=== PATIENT | female | born 1975 | race Hispanic/Latino ===

== ENCOUNTER 2019-01-11 15:49 | Emergency (ER) | payer BC ==
--- OUTSIDE RECORDS SUMMARY | 2019-01-11 15:50 | XMS REPORT ---
:1975 Author Organization eClinicalWorks Care Team Providers Name Role Phone Bret Shafer Provider Role Unavailable Allergies No Known Allergies Problems Problem Type Condition Code Onset Dates Condition Status Problem Benign essential HTN I10 Active Problem Allergic rhinitis, seasonal J30.2 Active Problem Dizziness R42 Active Problem Obesity (BMI 30-39.9) E66.9 Active Problem Vertigo R42 Active Problem Vitamin D deficiency E55.9 Active Problem Vitamin B 12 deficiency E53.8 Active Problem Hyperlipidemia, mixed E78.2 Active Problem Malaise and fatigue R53.81 Active Problem Elevated blood pressure (not R03.0 Active hypertension) Assessment Vitamin D deficiency E55.9 Active Assessment Malaise and fatigue R53.81 Active Assessment Benign essential HTN I10 Active Assessment Type 2 diabetes mellitus without E11.9 Active complication, without long-term current use of insulin Problem Type 2 diabetes mellitus without E11.9 Active complication, without long-term current use of insulin Assessment Hyperlipidemia, mixed E78.2 Active Problem Episodic lightheadedness R42 Active Medications Medication Code Code Instructions Start End Status Dosage System Date Date Metformin HCl [facility] 81781200232 500 MG Active TAKE 1 TABLET BY MOUTH TWICE A DAY Metformin HCl ND 20129550657 500 MG Orally Active 1 tablet Twice a day with meals Claritin [facility] 52063175541 10 MG Orally Active 1 tablet Once a day Lipitor ND 78704892246 20 MG Active TAKE 1 TABLET BY MOUTH AT BEDTIME Levocetirizine ND 18492965585 5 MG Orally Active 1 tablet Dihydrochloride Once a day in the evening Lipitor ND 31950609842 20 MG Active TAKE 1 TABLET BY MOUTH AT BEDTIME Flonase ND 37765415182 50 MCG/ACT Active 1 spray Nasally Once a in each day nostril Results No Known Results Summary Purpose eClinicalWorks Submission
--- OUTSIDE RECORDS SUMMARY | 2019-01-11 15:50 | XMS REPORT ---
:1975 Author Organization e[employer]Works Care Team Providers Name Role Phone Bret Shafer Provider Role Unavailable Allergies, Adverse Reactions, Alerts Substance Reaction Event Type N.K.D.A. Info Not Available Non Drug Allergy Problems Problem Type Condition Code Onset Dates Condition Status Problem Episodic lightheadedness R42 Active Problem Hyperlipidemia, mixed E78.2 Active Problem Allergic rhinitis, seasonal J30.2 Active Problem Vitamin D deficiency E55.9 Active Problem Obesity (BMI 30-39.9) E66.9 Active Problem Adult BMI 31.0-31.9 kg/sq m Z68.31 Active Problem Elevated blood pressure (not R03.0 Active hypertension) Problem Vitamin B 12 deficiency E53.8 Active Problem Vertigo R42 Active Problem Malaise and fatigue R53.81 Active Assessment Malaise and fatigue R53.81 Active Assessment Type 2 diabetes mellitus without E11.9 Active complication, without long-term current use of insulin Assessment Adult BMI 31.0-31.9 kg/sq m Z68.31 Active Assessment Vitamin D deficiency E55.9 Active Problem Type 2 diabetes mellitus without E11.9 Active complication, without long-term current use of insulin Assessment Hyperlipidemia, mixed E78.2 Active Problem Benign essential HTN I10 Active Assessment Benign essential HTN I10 Active Problem Dizziness R42 Active Medications Medication Code Code Instructions Start End Status Dosage System Date Date Claritin [facility] 62806135191 10 MG Orally Active 1 tablet Once a day Metformin HCl [facility] 19163104854 500 MG Orally Active 1 tablet Twice a day with meals Lipitor [facility] 53319015138 20 MG Orally Active take 1 Once a day tablet by mouth at bedtime Flonase [facility] 35482108094 50 MCG/ACT Active 1 spray Nasally Once a in each day nostril Metformin HCl [facility] 86441545745 500 MG Active TAKE 1 TABLET BY MOUTH TWICE A DAY Levocetirizine [facility] 13348915492 5 MG Orally Active 1 tablet Dihydrochloride Once a day in the evening Lipitor [facility] 36070160504 20 MG Active TAKE 1 TABLET BY MOUTH AT BEDTIME Results Name Result Date Reference Range Unit Abnormality Flag HEMOGLOBIN A1C ----A1C 5.8 [id number] Summary Purpose eClinicalWorks Submission
[2019-01-11] MEDS ORDERED: DIAZEPAM 5 MG TABLET ONE (17:36)
[2019-01-11] MEDS ORDERED: KETOROLAC 30 MG/ML INJ ONE (17:36)
[2019-01-11] MEDS ORDERED: MORPHINE 4 MG/ML SYR ONE (17:36)
[2019-01-11] MEDS ORDERED: ONDANSETRON 4 MG/2 ML VIAL ONE (17:37)
[2019-01-11] MEDS ORDERED: NA CHLORIDE 0.9% 1,000 ML ONE (17:37)
[2019-01-11 17:53] LABS: Absolute Lymphocytes (CBC) 2.7 K/uL (0.7-4.9); Absolute Monocytes 0.6 K/uL (0.1-1.3); Basophils % 0.4 % (0-1.3); Eosinophils % 0.7 % (0-4.4); Hematocrit 35.9 % (36.0-45.0); Lymphocytes % 32.6 % (15.3-44.8); MPV 8.4 fL (7.6-11.3); Monocytes % 7.1 % (3.3-12.3); RBC Red Blood Cell Count 4.26 M/uL (3.86-4.86)
--- NOTE | 2019-01-11 18:01 | RAD REPORT ---
EXAM DESCRIPTION: CT - Stone Protocol - 01/11/2019 5:49 pm CLINICAL HISTORY: Flank pain. Abd pain;Flank pain COMPARISON: <Comparisons> TECHNIQUE: Axial images were obtained without oral or IV contrast. Lack of contrast limits solid org an and vascular assessment. The rxdqj-xu-tigm spans the entirety of the system partially obscuring uppermost abdomen and lung bases. Coronal reformatted images were obtained and reviewed. All CT scans are performed using dose optimization technique as appropriate and may include automated exposure control or mA/KV adjustment according to patient size. FINDINGS: The lower lung tenorio are clear. Imaged portions of the liver and spleen show no suspicious findings on non-contrast imaging. The panc reas and adrenal glands are normal. No pathologic lymphadenopathy in the abdomen or pelvis. Punctate calculus is seen the inferior calyx right kidney. No hydronephrosis of either kidney. 18 mm cyst with mild peripheral calcification seen medial left kidney. No bowel obstruction, free air, free fluid or abscess. Appendectomy. No significant bony abnormality. IMPRESSION: Punctate calculus inferior right kidney without hydronephrosis.
[2019-01-11 18:05] LABS: ALT/SGPT 29 U/L (12-78); AST/SGOT 17 U/L (15-37); Albumin 4.1 g/dL (3.4-5.0); Alkaline Phosphatase 58 U/L (45-117); BUN Blood Urea Nitrogen 21 mg/dL (7-18); Bicarbonate 29 mmol/L (21-32); Bilirubin Direct < 0.1 mg/dL (0-0.2); Bilirubin Total 0.3 mg/dL (0.2-1.0); Glucose Level 88 mg/dL (74-106); Lipase 265 U/L (73-393); Potassium 3.5 mmol/L (3.5-5.1); Protein, Total 7.4 g/dL (6.4-8.2); Sodium Level 141 mmol/L (136-145)
--- NOTE | 2019-01-11 18:14 | EDPHYS ---
Physician Documentation [facility] Name: Flaca Lopes Age: 43 yrs Sex: Female : 1975 Arrival Date: 01/11/2019 Time: 15:51 Bed 26 Private MD: ED Physician Alex Ramires HPI: 01/11 17:07 This 43 yrs old Female presents to ER via Ambulatory with complaints of Back wilder Pain. 17:07 The patient presents with pain that is acute, with no known mechanism of injury. The wilder symptoms are located in the low back. Onset: The symptoms/episode began/occurred just prior to arrival, 2 day(s) ago. The pain does not radiate. Associated signs and symptoms: The patient has no apparent associated signs or symptoms. Modifying factors: The patient symptoms are alleviated by remaining still, the patient symptoms are aggravated by any movement, nothing. Severity of symptoms: At their worst the symptoms were moderate, in the emergency department the symptoms are unchanged. The patient has not experienced similar symptoms in the past. 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 - Social history:: Smoking status: Patient/guardian denies using tobacco. - Ebola Screening: : No symptoms or risks identified at this time. - Family history:: not pertinent. ROS: 17:07 Constitutional: Negative for fever, chills, and weight loss, Eyes: Negative for injury, wilder pain, redness, and discharge, ENT: Negative for injury, pain, and discharge, Neck: Negative for injury, pain, and swelling, Cardiovascular: Negative for chest pain, palpitations, and edema, Respiratory: Negative for shortness of breath, cough, wheezing, and pleuritic chest pain, Abdomen/GI: Negative for abdominal pain, nausea, vomiting, diarrhea, and constipation, : Negative for injury, bleeding, discharge, and swelling, MS/Extremity: Negative for injury and deformity, Skin: Negative for injury, rash, and discoloration, Neuro: Negative for headache, weakness, numbness, tingling, and seizure, Psych: Negative for depression, anxiety, suicide ideation, homicidal ideation, and hallucinations, Allergy/Immunology: Negative for hives, rash, and allergies, Endocrine: Negative for neck swelling, polydipsia, polyuria, polyphagia, and marked weight changes, Hematologic/Lymphatic: Negative for swollen nodes, abnormal bleeding, and unusual bruising. 17:07 Back: Positive for pain with movement, of the lumbar area, left low back and right low back. Exam: 17:07 Constitutional: This is a well developed, well nourished patient who is awake, alert, wilder and in no acute distress. Head/Face: Normocephalic, atraumatic. Eyes: Pupils equal round and reactive to light, extra-ocular motions intact. Lids and lashes normal. Conjunctiva and sclera are non-icteric and not injected. Cornea within normal limits. Periorbital areas with no swelling, redness, or edema. ENT: Nares patent. No nasal discharge, no septal abnormalities noted. Tympanic membranes are normal and external auditory canals are clear. Oropharynx with no redness, swelling, or masses, exudates, or evidence of obstruction, uvula midline. Mucous membranes moist. Neck: Trachea midline, no thyromegaly or masses palpated, and no cervical lymphadenopathy. Supple, full range of motion without nuchal rigidity, or vertebral point tenderness. No Meningismus. Chest/axilla: Normal chest wall appearance and motion. Nontender with no deformity. No lesions are appreciated. Cardiovascular: Regular rate and rhythm with a normal S1 and S2. No gallops, murmurs, or rubs. Normal PMI, no JVD. No pulse deficits. Respiratory: Lungs have equal breath sounds bilaterally, clear to auscultation and percussion. No rales, rhonchi or wheezes noted. No increased work of breathing, no retractions or nasal flaring. Abdomen/GI: Soft, non-tender, with normal bowel sounds. No distension or tympany. No guarding or rebound. No evidence of tenderness throughout. Female : Normal external genitalia. Skin: Warm, dry with normal turgor. Normal color with no rashes, no lesions, and no evidence of cellulitis. MS/ Extremity: Pulses equal, no cyanosis. Neurovascular intact. Full, normal range of motion. Neuro: Awake and alert, GCS 15, oriented to person, place, time, and situation. Cranial nerves II-XII grossly intact. Motor strength 5/5 in all extremities. Sensory grossly intact. Cerebellar exam normal. Normal gait. 17:07 Back: pain, that is mild, that is moderate, ROM is painful, normal spinal alignment noted, CVA tenderness, is absent, vertebral tenderness, is not appreciated, muscle spasm, is appreciated in the lumbar area, left low back and right low back. Vital Signs: 15:54 BP 128 / 72; Pulse 85; Resp 16; Temp 98.3; Pulse Ox 100% on R/A; Weight 80.29 kg; hb Height 5 ft. 3 in. (160.02 cm); Pain 10/10; 19:15 BP 102 / 65; Pulse 72; Resp 18; Pulse Ox 100% on R/A; aj1 15:54 Body Mass Index 31.35 (80.29 kg, 160.02 cm) hb MDM: 16:47 Patient medically screened. [facility] 17:08 Data reviewed: vital signs, nurses notes, lab test result(s), radiologic studies, CT wilder scan. 01/11 17:07 Order name: Basic Metabolic Panel; Complete Time: 18:12 [facility] 01/11 17:07 Order name: CBC with Diff; Complete Time: 18:12 [facility] 01/11 17:07 Order name: Creatinine for Radiology; Complete Time: 18:12 [facility] 01/11 17:07 Order name: Hepatic Function; Complete Time: 18:12 [facility] 01/11 17:07 Order name: Lipase; Complete Time: 18:12 [facility] 01/11 17:07 Order name: Urine Culture [facility] 01/11 17:09 Order name: CT Stone Protocol; Complete Time: 18:12 [facility] 01/11 17:39 Order name: Urine Dipstick--Ancillary (enter results); Complete Time: 18:42 01/11 17:39 Order name: Urine --Ancillary (enter results); Complete Time: 18:42 01/11 17:07 Order name: IV Saline Lock; Complete Time: 17:39 [facility] 01/11 17:07 Order name: Labs collected and sent; Complete Time: 17:39 [facility] 01/11 17:07 Order name: Urine Dipstick-Ancillary (obtain specimen); Complete Time: 17:35 [facility] Administered Medications: 17:34 Drug: Zofran 4 mg Route: IVP; Site: right antecubital; ls4 17:34 Drug: Valium 5 mg Route: PO; ls4 17:35 Drug: NS 0.9% 1000 ml Route: IV; Rate: 1 bolus; Site: right antecubital; ls4 17:35 Drug: TORadol 30 mg Route: IVP; Site: right antecubital; ls4 17:35 Drug: morphine 4 mg Route: IVP; Site: right antecubital; ls4 Disposition: 01/11/19 18:13 Discharged to Home. Impression: Low back pain. - Condition is Stable. - Discharge Instructions: Back Pain, Adult, Chronic Back Pain, Musculoskeletal Pain, Back Injury Prevention, Fjrs-bp-Vdxy, Back Pain, Adult, Exhx-ja-Ndgd, Back Exercises, Qsjg-ub-Gync. - Prescriptions for Ibuprofen 600 mg Oral Tablet - take 1 tablet by ORAL route every 8 hours As needed take with food; 21 tablet. Tylenol- Codeine #3 300-30 mg Oral Tablet - take 2 tablet by ORAL route every 6 hours As needed; 30 tablet. Cyclobenzaprine 5 mg Oral Tablet - take 1 tablet by ORAL route 3 times per day As needed; 15 tablet. Medrol (Kyrie) 4 mg Oral Tablets, Dose Pack - take 1 tablet by ORAL route as directed - follow package instructions; 1 packet. - Medication Reconciliation Form, Thank You Letter, Antibiotic Education, Prescription Opioid Use, Work release form form. - Follow up: Private Physician; When: 2 - 3 days; Reason: Recheck today's complaints, Continuance of care, Re-evaluation by your physician. - Problem is new. - Symptoms have improved. Signatures: Dispatcher [employer] Deisi Siddiqui RN RN aj1 Alex Ramires MD MD cha Baxter, Heather, RN RN hb Stewart, Lisa RN RN ls4 Corrections: (The following items were deleted from the chart) 19:30 18:13 01/11/2019 18:13 Discharged to Home. Impression: Low back pain. Condition is aj1 Stable. Discharge Instructions: Back Pain, Adult, Chronic Back Pain, Musculoskeletal Pain, Back Injury Prevention, Qruq-ly-Yxbk, Back Pain, Adult, Ngah-wc-Chmy, Back Exercises, Whzf-vg-Tzji. Prescriptions for Ibuprofen 600 mg Oral Tablet - take 1 tablet by ORAL route every 8 hours As needed take with food; 21 tablet, Tylenol-Codeine #3 300-30 mg Oral Tablet - take 2 tablet by ORAL route every 6 hours As needed; 30 tablet, Cyclobenzaprine 5 mg Oral Tablet - take 1 tablet by ORAL route 3 times per day As needed; 15 tablet. and Forms are Medication Reconciliation Form, Thank You Letter, Antibiotic Education, Prescription Opioid Use. Follow up: Private Physician; When: 2 - 3 days; Reason: Recheck today's complaints, Continuance of care, Re-evaluation by your physician. Problem is new. Symptoms have improved. wilder
--- NOTE | 2019-01-11 18:14 | ER ---
Nurse's Notes [facility] Name: Flaca Lopes Age: 43 yrs Sex: Female : 1975 Arrival Date: 01/11/2019 Time: 15:51 Bed 26 [facility] MD: Diagnosis: Low back pain Presentation: 01/11 15:53 Presenting complaint: Left sided low back pain x 1 week. Denies injury/urinary s/s. hb Transition of care: patient was not received from another setting of care. Onset of symptoms was January 05, 2019. Risk Assessment: Do you want to hurt yourself or someone else? Patient reports no desire to harm self or others. Initial Sepsis Screen: Does the patient meet any 2 criteria? No. Patient's initial sepsis screen is negative. Does the patient have a suspected source of infection? No. Patient's initial sepsis screen is negative. Care prior to arrival: Medication(s) given: Motrin, at 0700. 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 - Social history:: Smoking status: Patient/guardian denies using tobacco. - Ebola Screening: : No symptoms or risks identified at this time. - Family history:: not pertinent. Screenin:36 Abuse screen: Denies threats or abuse. Denies injuries from another. Nutritional ls4 screening: No deficits noted. Tuberculosis screening: No symptoms or risk factors identified. Fall Risk No fall in past 12 months (0 pts). No secondary diagnosis (0 pts). IV access (20 points). Ambulatory Aid- None/Bed Rest/Nurse Assist (0 pts). Gait- Normal/Bed Rest/Wheelchair (0 pts) Mental Status- Oriented to own ability (0 pts). Total Patel Fall Scale indicates No Risk (0-24 pts). Assessment: 17:37 General: Appears uncomfortable, Behavior is calm, cooperative. Pain: Complains of pain ls4 in right low back and left low back and lumbar area Pain currently is 10 out of 10 on a pain scale. Neuro: Level of Consciousness is awake, alert, obeys commands, Oriented to person, place, time, situation. Respiratory: Airway is patent Respiratory effort is even, unlabored, Respiratory pattern is regular. Musculoskeletal: No deficits noted. 19:15 Reassessment: Patient appears in no apparent distress at this time. Patient is alert, aj1 oriented x 3, equal unlabored respirations, skin warm/dry/pink. Vital Signs: 15:54 BP 128 / 72; Pulse 85; Resp 16; Temp 98.3; Pulse Ox 100% on R/A; Weight 80.29 kg; hb Height 5 ft. 3 in. (160.02 cm); Pain 10/10; 19:15 BP 102 / 65; Pulse 72; Resp 18; Pulse Ox 100% on R/A; aj1 15:54 Body Mass Index 31.35 (80.29 kg, 160.02 cm) hb ED Course: 15:51 Patient arrived in ED. rg4 15:54 Triage completed. hb 15:54 Arm band placed on. hb 16:47 Alex Ramires MD is Attending Physician. wilder 17:08 Angela Pierce, RN is Primary Nurse. ls4 17:27 Radiology exam delayed due to test not completed at this time. nj 17:29 Patient has correct armband on for positive identification. Bed in low position. Call ls4 light in reach. Side rails up X 1. Pulse ox on. NIBP on. 17:29 Initial lab(s) drawn, by me, sent to lab. Inserted saline lock: 20 gauge in right ls4 antecubital area, using aseptic technique. Blood collected. 17:29 No provider procedures requiring assistance completed. ls4 17:51 CT Stone Protocol In Process Unspecified. EDMS 19:15 IV discontinued, intact, bleeding controlled, No redness/swelling at site. Pressure aj1 dressing applied. Administered Medications: 17:34 Drug: Zofran 4 mg Route: IVP; Site: right antecubital; ls4 17:34 Drug: Valium 5 mg Route: PO; ls4 17:35 Drug: NS 0.9% 1000 ml Route: IV; Rate: 1 bolus; Site: right antecubital; ls4 17:35 Drug: TORadol 30 mg Route: IVP; Site: right antecubital; ls4 17:35 Drug: morphine 4 mg Route: IVP; Site: right antecubital; ls4 Outcome: 18:13 Discharge ordered by MD. hdz 19:16 Discharged to home ambulatory. aj1 19:16 Condition: good 19:16 Discharge instructions given to patient, Instructed on discharge instructions, follow up and referral plans. no drinking with medication, no driving heavy equipment, medication usage, Demonstrated understanding of instructions, follow-up care, medications, Prescriptions given X 4. 19:30 Patient left the ED. aj1 Signatures: Dispatcher [employer] EDMS Deisi Soriano RN RN aj1 Alex Ramires MD MD cha Baxter, Heather, RN RN hb Garcia, Rubi rg4 Jose Juan Lawson Lisa, RN RN ls4
[2019-01-11 18:27] LABS: Urine Blood NEGATIVE (NEG); Urine Glucose NEGATIVE (NEG); Urine Protein 1+ (NEG); Urine Specific Gravity 1.025 (1.005-1.030)
[2019-01-12 03:01] VITALS: TEMP 98.3; O2SAT 100
[2019-01-12 03:03] VITALS: BP 102/65
== END 2019-01-11 19:30 | disposition home or self-care (01) ==
LOC: ER 15:49
DX: M54.5 Low back pain (principal); I10 Essential (primary) hypertension
CPT/HCPCS: 36415; 74176; 76377; 80048; 80076; 81003; 81025; 83690; 85025; 87086; 87088; 96374; 96375; 99284; J2405; J7030

== ENCOUNTER 2024-03-17 06:29 | Day surgery (SDC) | payer OTHER ==
[2024-03-14 09:55] LABS: Anion Gap 5.1 mEq/L (5.0-15.0); Potassium 4.1 mEq/L (3.5-5.1)
[2024-03-17] MEDS ORDERED: BACITRACIN OINTMENT 14 GM TUBE TOP ONE (06:58)
[2024-03-17] MEDS ORDERED: NA CHLORIDE 0.9% 500 ML ONE (06:59)
[2024-03-17] MEDS: NA CHLORIDE 0.9% 1,000 ML ONE (07:01)
[2024-03-17] MEDS ORDERED: SUGAMMADEX SODIUM 200 MG/2 ML VIAL IV ONE (07:05)
[2024-03-17] MEDS ORDERED: SUCCINYLCHOLINE 20 MG/ML (10 ML) IV ONE (07:05)
[2024-03-17] MEDS ORDERED: ONDANSETRON 4 MG/2 ML VIAL ONE (07:09)
[2024-03-17] MEDS ORDERED: LIDOCAINE 2% MPF 5 ML VIAL ONE (07:09)
[2024-03-17] MEDS ORDERED: MIDAZOLAM HCL 2 MG/2 ML INJ ONE (07:10)
[2024-03-17] MEDS ORDERED: propofoL 200 MG/20 ML VIAL IV ONE (07:10)
[2024-03-17] MEDS ORDERED: FENTANYL CITR 100 MCG/2 ML ONE (07:10)
[2024-03-17] MEDS ORDERED: ROCURONIUM 50 MG/5 ML VIAL IV ONE (07:10)
[2024-03-17] MEDS ORDERED: HYDROMORPHONE HCL 1 MG/ML INJ ONE (07:26)
[2024-03-17] MEDS: CEFAZOLIN SODIUM 1 GM/VIAL ONE (07:58)
[2024-03-17] MEDS ORDERED: dexAMETHasone 10 MG/ML VIAL ONE (07:58)
[2024-03-17] MEDS ORDERED: OXYMETAZOLINE HCL 0.05% 15ML NAS ONE (08:27)
[2024-03-17] MEDS: OXYMETAZOLINE HCL 0.05% 15ML NAS ONE (08:45)
[2024-03-17] MEDS: LIDOCAINE HCL/EPINEPHRINE 20 ML MDV ONE (09:00)
[2024-03-17] MEDS: ONDANSETRON 4 MG/2 ML VIAL ONE (09:45)
[2024-03-17] MEDS: ACETAMINOPHEN 325 MG TABLET ONE (10:32)
[2024-03-17 11:05] VITALS: BP 159/76; TEMP 97; O2SAT 100
--- NOTE | 2024-03-21 18:45 | OP ---
Date of Procedure: 03/17/2024 Surgeon: HARRY SCHULZ Preoperative Diagnosis: Chronic left nasal cavity epistaxis. Postoperative Diagnoses: 1.Chronic left nasal cavity epistaxis. 2.Left sphenoid sinus neoplasm, uncertain behavior. Procedures: 1.Bilateral nasal endoscopies. 2.Stereotactic radio image guidance system. 3.Left sphenoid sinus balloon sinuplasty with lavage. 4.Excision of left sphenoid sinus mucous retention cyst. 5.Extensive left posterior nasal cavity packing. Anesthesia: General endotracheal anesthesia was administered. I also infiltrated approximately 5 mL of 1% lidocaine with 1:100,000 epinephrine into the left nasal septum and left sphenoid sinus rostru m. Estimated Blood Loss: Less than 5 mL. Specimens: None. Findings: Large left sphenoid sinus mucous retention cyst. No evidence of mali active bleeding or blood clots. Complications: None. Disposition: Stable. The patient tolerated the procedure well. Indications For Procedure: Patient is a pleasant 48-year-old female who presented to my outpatient c lin with chronic recurrent left nasal epistaxis with inability to detect the source of bleeding as she presented to my office with no active bleeding. These are indications to bring the patient to op erative suite for the above-mentioned procedure. The bleeding was severe and she was coughing up blo od, and it was important to find a source. CT scan of the sinuses detected a polyp, possibly mucous retention cyst in the left sphenoid sinus which could potentially be a source for bleeding. She unde rstood. All questions were answered. Risks, benefits, and complications were explained in detail an d a consent form was signed which was placed in the chart. Description Of Procedure: The patient was transferred from the preoperative holding area to the oper ative suite by Department of Anesthesia, placed on the operating room table supine, sedated and intub ated in normal fashion. Table was rotated 180 degrees and head rest was placed. Afrin-soaked nasal pledgets were introduced into bilateral nasal cavities. The patient was sterilely prepped and draped . The patient was calibrated to the stereotactic radio image guidance system and found to be working appropriately with her CT scan. The pledgets were removed from bilateral nasal cavities and a 0-degree rigid nasal endoscope was then inserted along the floor of bilateral nasal cavities. There was no active bleeding, vascular ectasi a, excoriation, blood clots detected. Our attention was placed to the left sphenoid sinus rostral op ening in which approximately 3-5 mL of 1% lidocaine with 1:100,000 epinephrine was infiltrated along the floor of the left nasal septum back to the sphenoid sinus rostral opening. Utilizing the balloon , we were able to find the sphenoid sinus opening by lateralizing the left middle turbinate. The bal loon had a lighted guidewire attached and we were able to insert this wire into the left sphenoid sin us opening and then the balloon was inflated 4 times to 12 mmHg and deflated and removed. Inflamed m ucosa was removed with a mushroom punch to expose the lesion in the left sphenoid sinus. Once I was able to insert the camera into the sphenoid sinus opening, there was a mucus retention cyst adhered t o the anterior/inferior wall of the left sphenoid sinus. It was removed with a curette. I then lava ged the left sphenoid sinus with approximately 90 mL of sterile saline. Cauterization was not needed for hemostasis. I inserted a HemoPore packing into the left sphenoid sinus rostral opening and then the scope was completely removed. A mustache dressing was placed. She tolerated the procedure well . Will be discharged home on antibiotic and analgesic medication. Will follow up in 1-2 weeks or sooner if needed. CALLIE/SHAYLEE Voice ID: [id number] Report ID: [id number]
== END 2024-03-17 11:30 | disposition home or self-care (01) ==
LOC: OR 06:29
PROVIDERS: ATTEND Otolaryngology Facial Plastic Surgery
PROC: 09BX8ZX Excision of Left Sphenoid Sinus, Via Natural or Artificial Opening Endoscopic, Diagnostic (ICD-10-PCS; 2024-03-17)
PROC: 09JY8ZZ Inspection of Sinus, Via Natural or Artificial Opening Endoscopic (ICD-10-PCS; 2024-03-17)
PROC: 09QX4ZZ Repair Left Sphenoid Sinus, Percutaneous Endoscopic Approach (ICD-10-PCS; principal; 2024-03-17 07:30)
DX: R04.0 Epistaxis (principal); J34.3 Hypertrophy of nasal turbinates; J34.1 Cyst and mucocele of nose and nasal sinus
CPT/HCPCS: 31297; 31237; 31235; 80048; 36415; 81025; 82947 ×2; J2704; J2001; J2250; J3010; J1100; J1170; J2405 ×2; J7040; J7030; J0690